=== PATIENT | female | born 2000 ===

== ENCOUNTER 2022-04-04 02:36 | Emergency (ER) | payer SELFPAY ==
[2022-04-04] MEDS: Ondansetron 4 MG/2 ML SDV IVPUSH ONE (02:59)
[2022-04-04] MEDS: diphenhydrAMINE 50 MG/ML SDV IVPUSH ONE (03:02)
[2022-04-04] MEDS: MVI, Adult with Vitamin K 10 ML, Folic Acid 1 MG, Thiamine 100 MG in Lactated Ringers 1... IV ONE ×4 (03:10)
[2022-04-04 03:40] LABS: ANION GAP 18.6 mEq/L (7-13); CHLORIDE,CL 105 mmol/L (98-107); ESTIMATED GFR 85 mL/min (>=60); SODIUM,NA 141 mmol/L (136-145)
[2022-04-04] MEDS: Sodium Chloride 0.9% 1,000 ML IV ONE (04:14)
[2022-04-04] MEDS: Potassium Chloride 20 MEQ in Premix Bag 1 BAG IV ONE (04:17)
[2022-04-04 05:17] LABS: AMPHETAMINES,URINE NEGATIVE (NEGATIVE); BARBITURATES,URINE NEGATIVE (NEGATIVE); BENZODIAZEPINE,URINE NEGATIVE (NEGATIVE); MDMA (ECSTASY), URINE NEGATIVE (NEGATIVE); METHADONE,URINE NEGATIVE (NEGATIVE); METHAMPHETAMINES,URINE NEGATIVE (NEGATIVE); OPIATES,URINE NEGATIVE (NEGATIVE); OXYCODONE,URINE NEGATIVE (NEGATIVE); PHENCYCLIDINE,URINE NEGATIVE (NEGATIVE); TCA,URINE NEGATIVE (NEGATIVE)
== END 2022-04-04 07:03 | disposition home or self-care (01) ==
LOC: DL.ED 02:36
DX: T51.94XA Toxic effect of unspecified alcohol, undetermined, initial encounter (principal)
CPT/HCPCS: 36415; 80053; 80305; 80307; 81003; 84703; 85025; 96361; 96365; 96366; 96367; 96375; 99284; J1200; J2405; J3411; J3480; J7030; J7120; J3490